=== PATIENT | male | born 1985 | race Caucasian/White ===

== ENCOUNTER → 2018-04-06 | Outpatient (CLI) | payer OTHER ==
[2018-04-06 09:00] LABS: EOS # 0.3 (0.04-0.40); EOS % 3.8 % (0.0-4.0); HEMATOCRIT 44.9 % (42.0-52.0); HEMOGLOBIN 15.2 g/dL (13.5-18.0); LYMPH# 1.7 (1.50-4.00); MEAN CELL VOLUME 90 fl (78-100); MEAN CORPUSCULAR HEMOGLOBIN 30 pg (27-31); MEAN CORPUSCULAR HGB CONC 34 g/dL (33-37); MEAN PLATELET VOLUME 9.5 fl (7.4-10.4); MONO # 0.5 (0.20-0.80); NEU # 4.1 (1.40-6.50); PLATELET COUNT 263 K/mm3 (130-400); RED CELL DISTRIBUTION WIDTH 13.4 % (11.5-14.5); WHITE BLOOD COUNT 6.6 K/mm3 (4.8-10.8)
[2018-04-06 09:57] LABS: ALBUMIN 4.2 g/dL (3.5-5.0); BUN/CREATININE RATIO 15.4 (6.0-26.0); CALCIUM 9.5 mg/dL (8.4-10.2); POTASSIUM 4.5 mmol/L (3.6-5.0); TOTAL BILIRUBIN 0.5 mg/dL (0.2-1.3); TOTAL PROTEIN 7.3 g/dL (6.3-8.2)
== END ==
LOC: LAB 08:44
PROVIDERS: Family Medicine
DX: Z00.00 Encounter for general adult medical examination without abnormal findings (principal)

== ENCOUNTER → 2024-05-17 | Outpatient (CLI) | payer BC | LOC: RAD 07:19 | DX: M67.921 Unspecified disorder of synovium and tendon, right upper arm (principal); M25.532 Pain in left wrist; M67.833 Other specified disorders of tendon, right wrist ==